=== PATIENT | male | born 2005 | race Caucasian/White ===

== ENCOUNTER 2023-07-19 20:56 | Emergency (ER) | payer BC, OTHER, SELFPAY ==
[2023-07-19 21:02] VITALS: BP 114/75; PULSE 77; RESP 18; TEMP 36.4; BMI 19.0
--- NOTE | 2023-07-19 21:33 | CRLHL7_ITS ---
For Patients: As a result of the Cures Act, medical imaging exams and procedure reports are released immediately into your electronic medical record. You may view this report before your referring provider. If you have questions, please contact your health care provider. Indication: FALL. Technique: Left clavicle, 2 views. Comparison: None. Findings: Bones: Fracture of the mid clavicle. There is overriding of the fracture fragments by approximately 2.6 centimeters.. Joint spaces: Mild widening of the AC joint.. Soft tissues: Unremarkable. Impression: Fracture of the mid clavicle with overriding fracture fragments. Dictated by Db Herzog MD @ 07/19/2023 10:33:00 PM (Electronically Signed)
--- NOTE | 2023-07-19 22:11 | ED.GENADULT ---
HPI - General Adult General Chief complaint: Fall/Minor Trauma Stated complaint: Snowboarding-broken collarbone? Time Seen by Provider: 07/19/23 20:58 Source: patient Mode of arrival: ambulatory Limitations: no limitations History of Present Illness HPI narrative: 17-year-old male presenting to the ER complaining of a left shoulder pain after tumbling forward while snowboarding. Patient was wearing helmet. He denies any head or neck pain. States that he has pain of the anterior shoulder. Denies any chest pain or shortness of breath. He was able to get up after the accident and walked to the bottom of the hill. Past medical history and medication reviewed. Related Data Previous Rx's Medication Instructions Recorded sumatriptan succinate 100 mg 100 mg PO Q2-4H PRN migraine 02/14/23 tablet (Imitrex) headache #10 tabs azithromycin 250 mg tablet See Rx Instructions PO .COMPLEX #6 03/22/23 (Zithromax Z-Benjy) tabs ondansetron 8 mg disintegrating 8 mg PO Q12H PRN nausea and 06/03/23 tablet vomiting #30 tabs Allergies Allergy/AdvReac Type Severity Reaction Status Date / Time Penicillins Allergy Unknown Unknown Verified 03/22/23 11:38 Review of Systems Status of ROS: Reports: 10 or more systems reviewed and unremarkable except as noted in History and below PFSH PFS Medical History Migraine ?G43.909 - Migraine, unspecified, not intractable, without status migrainosus (ICD-10) Oppositional disorder ?F91.3 - Oppositional defiant disorder (ICD-10) ADHD (attention deficit hyperactivity disorder) ?F90.9 - Attention-deficit hyperactivity disorder, unspecified type (ICD-10) SHEREEN (generalized anxiety disorder) ?F41.1 - Generalized anxiety disorder (ICD-10) Family History Maternal Grandfather Heart disease Other Diabetes Social History Narrative: 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, 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, 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, 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, social ETOH What is your current living situation?: I presently have a place to live Problems where you live: no known problems In the past 12 months, utilities in danger of being shut off: no In past 12 months, lack of transportation kept you from medical appts, meetings, work, or getting things needed for daily living: no In the past 12 mos, have been you worried that your food would run out before you had money to buy more?: never true In the past 12 mos, the food you bought just didn't last and you didn't have money to buy more?: never true How often does anyone, including family, friends and others, physically hurt you: never How often does anyone, including family, friends and others, insult or talk down to you: never How often does anyone, including family, friends and others, threaten you with harm: never How often does anyone, including family, friends and others, scream or curse at you: rarely Little interest or pleasure in doing things: several days Feeling down, depressed, or hopeless: several days Exam Narrative: Exam Narrative: Well-nourished well-developed patient in no acute distress. Alert and oriented. Answers questions appropriately. Mood and affect are appropriate. Thoughts are goal oriented and rational. No tangential or magical thinking noted. Patient speaks in full sentences without needing to catch his breath. Speech is not slurred or pressured. GCS is 15. HEENT: Normocephalic atraumatic. Pupils are equally round reactive to light. Extraocular muscles are intact. Conjunctivae are moist without any icterus noted. Moist mucous membranes. Posterior pharynx is normal. Neck is soft without any lymphadenopathy or thyromegaly. No masses are appreciated. He has no tenderness to palpation of the cervical spine. Full range of motion at the neck with flexion, extension, side bending and rotation pure Cardiovascular: Heart is regular rate and rhythm S1 and S2 are present without any murmurs. Lungs: Clear to auscultation bilaterally no wheezes rhonchi or rales are appreciated. Patient does have pain just medial to the anterior shoulder at the clavicle area when he takes deep inspirations. Abdomen: Soft and nontender nondistended with normal bowel sounds. Extremities: Bilateral lower extremities are without edema. Normal DP and PT pulses. Skin: Well perfused without any obvious rashes. Patient has pain over the left clavicle. There is no hematoma, tenting. The extremities vascularly intact. No neurologic deficits. Const: Vital Signs, click to edit/add: Vital Signs - 24 hr 07/19/23 21:02 Temperature 97.6 F Pulse Rate [Pulse Oximeter] 77 Respiratory Rate 18 Blood Pressure [Ri ght Upper Arm] 114/75 Oxygen Delivery Me thod Room Air Course Course ED Course: X-ray of the clavicle or does reveal a fracture of the mid clavicle with displaced ends. Vital Signs Vital signs: Initial Vital Signs Temperature 97.6 F 07/19/23 21:02 Temperature Source Temporal Artery Scan 07/19/23 21:02 Pulse Rate 77 07/19/23 21:02 Respiratory Rate 18 07/19/23 21:02 Blood Pressure 114/75 07/19/23 21:02 Blood Pressure Mean 88 07/19/23 21:02 Blood Pressure Position Supine 07/19/23 21:02 Oxygen Delivery Method Room Air 07/19/23 21:02 Vital Signs Temperature 97.6 F 07/19/23 21:02 Pulse Rate 77 07/19/23 21:02 Respiratory Rate 18 07/19/23 21:02 Blood Pressure 114/75 07/19/23 21:02 Oxygen Delivery Method Room Air 07/19/23 21:02 Temperature 97.6 F 07/19/23 21:02 Pulse Rate 77 07/19/23 21:02 Respiratory Rate 18 07/19/23 21:02 Blood Pressure 114/75 07/19/23 21:02 Oxygen Delivery Method Room Air 07/19/23 21:02 Medical Decision Making MDM Narrative Medical decision making narrative: 17-year-old male with clavicular fracture. Patient will be placed in a sling and will follow-up with orthopedics as this will potentially require surgical intervention. Discharge Plan Discharge Clinical Impression: Clavicle fracture Patient Disposition: Home, Self-Care Condition: Stable Additional Instructions: Wear sling at all times. Use pain medications as needed/as directed. You will need to follow-up with orthopedics: Call to make an appointment 1st thing in the morning. Ten tablets of [place] sent via [employer]. Prescriptions: No Action sumatriptan succinate [Imitrex] 100 mg tablet 100 mg PO Q2-4H PRN (Reason: migraine headache) Qty: 10 1RF azithromycin [Zithromax Z-Benjy] 250 mg tablet See Rx Instructions PO .COMPLEX Qty: 6 0RF Rx Instructions: For 250 mg dose pack: take 500 mg today (day 1), then 250 mg for 4 days (days 2-5) PO ondansetron 8 mg tablet,disintegrating 8 mg PO Q12H PRN (Reason: nausea and vomiting) Qty: 30 2RF Follow Up/Referrals: George Tracy MD [Primary Care Provider] - Stand Alone Forms: [employer] Info Instructions
== END 2023-07-19 22:36 | disposition home or self-care (01) ==
PROVIDERS: Emergency Provider Family Medicine; PCP Family Medicine
DX: S42.002A Fracture of unspecified part of left clavicle, initial encounter for closed fracture (principal); W18.39XA Other fall on same level, initial encounter; Y93.23 Activity, snow (alpine) (downhill) skiing, snowboarding, sledding, tobogganing and snow tubing
CPT/HCPCS: 73000; 99283

== ENCOUNTER 2023-07-20 12:16 | Outpatient (CLI) | payer BC, OTHER, SELFPAY | END 2023-07-20 12:17 | disposition home or self-care (01) | PROVIDERS: PCP Family Medicine; Visit Provider Family Medicine | DX: Z13.228 Encounter for screening for other metabolic disorders (principal); Z13.0 Encounter for screening for diseases of the blood and blood-forming organs and certain disorders involving the immune mechanism | CPT/HCPCS: 80048; 85025 ==

== ENCOUNTER 2023-07-28 09:08 | Day surgery (SDC) | payer BC, OTHER, SELFPAY ==
[2023-07-28] VITALS (15 sets, daily range): BP systolic 99–117; BP diastolic 61–76; PULSE 59–100; RESP 12–16; TEMP 36.3–37.2; O2SAT 94–100; BMI 20.1
--- OUTSIDE RECORDS SUMMARY | 2023-07-28 09:11 | XMS_ITS | Clinical Summary ---
Author Name Unknown Organization [facility] Address [address] [place] [address] Care Team Providers Care Enterprise Software Developer Name Role Phone David Bland M.D. Primary Care Provider [phone] Source Comments Patient records contain information from all sites at [facility]. For routine questions regarding patient records, call [phone] during business hours, M-F 8:00 AM - 5:00 PM Central Time. Record requests for emergency care only can be directed to [phone] at any time.[facility] Allergies Active Allergy Reactions Criticality Noted Date Comments Penicillins Other (see comments) 06/22/2017 Reaction unknown Medications Medication Sig Dispensed Refills Start Date End Date Status amphetamine-dextroam phetamine (ADDERALL XR) 10 mg 24 hr capsule Take 10 mg by mouth daily. 0 Active amphetamine-dextroam phetamine (ADDERALL XR) 10 mg 24 hr capsuleIndications:A ttention Deficit Disorder Combined Type Take 1 capsule (10 mg total) by mouth every morning Earliest Fill Date: 10/19/18. 30 capsule 0 10/19/2018 Active amphetamine-dextroam phetamine (ADDERALL XR) 10 mg 24 hr capsuleIndications:A ttention Deficit Disorder Combined Type Take 1 capsule (10 mg total) by mouth daily Earliest Fill Date: 11/18/18. 30 capsule 0 11/18/2018 Active amphetamine-dextroam phetamine (ADDERALL XR) 10 mg 24 hr capsuleIndications:A ttention Deficit Disorder Combined Type Take 1 capsule (10 mg total) by mouth daily Earliest Fill Date: 12/19/18. 30 capsule 0 12/19/2018 Active predniSONE (DELTASONE) 20 mg tablet Take 2 tablets (40 mg total) by mouth daily. 10 tablet 0 03/15/2022 Active Active Problems Problem Noted Date Diagnosed Date Anxiety Generalized Disorder 02/02/2018 Attention Deficit Disorder Combined Type 017 Overview: Attention Deficit (ADHD) Disorder Combined Type Immunizations Name Administration Dates Next Due 4vHPV (discontinued) 03/13/2017,09/09/2016 DTaP, Unspecified 08/10/2005, 5,05/11/2004,2003,01/05/2004 HepA Pediatric/Adolescent 07/21/2014 HepB, Unspecified 08/27/2004,03/04/2004,01/05/20 04 Hib, Unspecified 02/07/2005, 5,05/11/2004,2003,01/05/2004 IPV 03/30/2009, 4,03/04/2004,2003 Influenza, Unspecified 03/21/2017 MCV4 (Menactra)(Discontinued) 09/09/2016 MMR 02/19/2009,02/07/2005,11/17/2004 PCV7 (discontinued) 02/08/2006, 4,04/22/2004,2003 Tdap 09/09/2016 OSBALDO 07/21/2014 influenza vaccine quad (FLUZONE/FLUARIX) (6 months and older)(PF) 07/21/2014 Family History Medical History Relation Name Comments No Known Problems Father No Known Problems Mother Relation Name Status Comments Father Alive Mother Alive Social History Tobacco Use Types Packs/Day Years Used Date Smoking Tobacco: Never Smokeless Tobacco: Never Tobacco Cessation:Counseling Given: Not Answered PHQ-2 Answer Date Recorded PHQ-2 Score 1 12/06/2018 Nutrition Answer Date Recorded Nutrition: EVOO Fat Source Unknown 08/28 Nutrition: Servings of Fruits/Vegetables per Day Not on file 08/28/2020 Dental Answer Date Recorded Dental: Regular Dentist Unknown 08/29/19 21 Sex and Gender Information Value Date Recorded Sex Assigned at Not on file Gender Identity Not on file Sexual Orientation Not on file Last Filed Vital Signs Vital Sign Reading Time Taken Comments Blood Pressure 106/71 03/15/2022 12:57 PM CDT Pulse 110 03/15/2022 12:57 PM CDT Temperature 37.4 ??C (99.3 ??F) 07/29/2019 8:32 AM CS T Respiratory Rate 20 07/29/2019 8:32 AM ASSEMBLY LINE LEADER Oxygen Saturation 98% 03/15/2022 12:57 PM CDT Inhaled Oxygen Concentration - - Weight 58.2 kg (128 lb 3.2 oz) 03/15/2022 12:57 PM CDT Height 169.5 cm (5' 6.73) 07/29/2019 8:32 AM CS T Body Mass Index - - Plan of Treatment Health Maintenance Due Date Last Done Comments HIV Screening 2003 Hearing Screening during Well Child Visit 2003 Hepatitis C Screening 2003 1 week Well Child Check-Up 2003 1 month Well Child Check-Up 2003 2 month Well Child Check-Up 2003 4 month Well Child Check-Up 01/28/2004 6 month Well Child Check-Up 03/29/2004 COVID-19 Vaccine (#1) 04/29/2004 9 month Well Child Check-Up 06/29/2004 12 month Well Child Check-Up 09/27/2004 15 month Well Child Check-Up 12/27/2004 18 month Well Child Check-Up 03/29/2005 2 year Well Child Check-Up 09/27/2005 30 month Well Child Check-Up 03/29/2006 3 year Well Child Check-Up 09/27/2006 4 year Well Child Check-Up 09/28/2007 5 year Well Child Check-Up 09/27/2008 6 year Well Child Check-Up 09/27/2009 7 year Well Child Check-Up 09/27/2010 8 year Well Child Check-Up 09/28/2011 9 year Well Child Check-Up 09/27/2012 10 year Well Child Check-Up 09/27/2013 11 year Well Child Check-Up 09/27/2014 Varicella Vaccines (2 of 2 - 2-dose childhood series) 10/13/2014 07/21/2014 12 year Well Child Check-Up 09/28/2015 13 year Well Child Check-Up 09/27/2016 14 year Well Child Check-Up 09/27/2017 Vision Screening during Well Child Visit 10/27/2017 15 year Well Child Check-Up 09/27/2018 16 year Well Child Check-Up 09/28/2019 17 year Well Child Check-Up 09/27/2020 18 year Well Child Check-Up 09/27/2021 17 year Well Child Check-Up 09/27/2022 Well Child Check-Up ([facility]) 09/27/2022 Influenza Vaccine (#1) 2023 7, 03/21/2017, 07/21/2014, Additional history exists Depression Screening (Annual PHQ-2) 06/26/2023 DTaP,Tdap,and Td Vaccines (6 - Td or Tdap) 09/09/2026 09/09/2016, 08/10/2005, 08/10/2005, Additional history exists Hepatitis B Vaccines Completed 08/27/2004, 03/04/2004, 01/05/2004 Pneumococcal vaccine (0-64 years) Aged Out 02/08/2006, 05/11/2004, 04/22/2004, Additional history exists No longer eligible based on patient's age to complete this topic MMR Vaccines Completed 02/19/2009, 01/24, 11/17/2004 Meningococcal Vaccine Aged Out 09/09/2016 No josé miguel sam eligible based on patient's age to complete this topic HPV Vaccines Completed 03/13/2017, 02/24, 09/09/2016, Additional history exists Care Teams Enterprise Software Developer Relationship Specialty Start Date End Date David Bland M.D. [address] [place] [id number] [facility] - General 12/23/16
--- OUTSIDE RECORDS SUMMARY | 2023-07-28 09:11 | XMS_ITS | Referral Summary ---
Author Name Unknown Organization [facility] Address [address] [place] [address] Care Team Providers Care Gifts Officer Name Role Phone David Bland M.D. Primary Care Provider [phone] Source Comments Patient records contain information from all sites at [facility]. For routine questions regarding patient records, call [phone] during business hours, M-F 8:00 AM - 5:00 PM Central Time. Record requests for emergency care only can be directed to [phone] at any time.[facility] Allergies Active Allergy Reactions Criticality Noted Date [...] quad (FLUZONE/FLUARIX) (6 months and older)(PF) 07/21/2014 Social History Tobacco Use Types Packs/Day Years [...] T Respiratory Rate 20 07/29/2019 8:32 AM REPORTING PROCESS CONSULTANT Oxygen Saturation 98% 03/15/2022 12:57 PM CDT Inhaled Oxygen Concentration - - Weight 58.2 kg (128 lb 3.2 oz) 03/15/2022 12:57 PM CDT Height 169.5 cm (5' 6.73) 07/29/2019 8:32 AM CS T Body Mass Index - - Plan of Treatment Not on file Care Teams Gifts Officer Relationship Specialty Start Date End Date David Bland M.D. [address] [place] [id number] PCP - General 12/23/16
--- OUTSIDE RECORDS SUMMARY | 2023-07-28 09:11 | XMS_ITS ---
Author Name Unknown Organization [facility] Address [address] [place] [address] Care Team Providers Care Service Order Dispatcher Name Role Phone Unavailable Unavailable Unavailable Surgery Details Not on file Complications Check Surgery Details section. Procedure Estimated Blood Loss Check Surgery Details section. Procedure Findings Check Surgery Details section. Procedure Specimens Taken Check Surgery Details section.
[2023-07-28] MEDS: LACTATED RINGERS 1000 ML 1,000 ML 100 ML IV (09:46)
[2023-07-28] MEDS: SODIUM CHLORIDE 0.9 % (FLUSH) 10 ML SYRINGE IVF (09:46)
--- NOTE | 2023-07-28 09:49 | W.PM.H&PU ---
History & Physical Update History & Physical Update H&P Reviewed and patient assessed: No changes noted
--- NOTE | 2023-07-28 09:49 | PM.ORPRC ---
Procedure Note Date of procedure: 07/28/23 Procedure: PREOPERATIVE DIAGNOSIS: 1. Left clavicle shaft fracture POSTOPERATIVE DIAGNOSIS: 1. Left clavicle shaft fracture PROCEDURE: 1. Left clavicle open reduction internal fixation SURGEON: Cedrick Baez MD. [employer] LEADER: [CHANTELL Shah] - Of note, an aquatics assistant department head was critical for this case to aid in patient positioning, tissue retraction, limb manipulation/positioning, and closure. ANESTHESIA: [Spinal/General/] anesthetic IMPLANTS: [] ESTIMATED BLOOD LOSS: [] COMPLICATIONS: None INDICATIONS: The patient is a pleasant 17-year-old male who sustained displaced left clavicle fracture after an injury that he sustained while snowboarding. Due to the amount of displacement and shortening, recommendations made for surgical intervention consisting of left clavicle open reduction internal fixation. Prior to surgery risks and benefits of procedure were discussed with patient all questions were answered and informed consent was obtained.. FINDINGS: Closed, displaced, short oblique, midshaft clavicle fracture. DESCRIPTION OF PROCEDURE: Following a thorough discussion of risks, benefits, and alternatives consent was obtained and the operative site was marked. A regional block was then performed by anesthesia staff. The patient was brought to the operating room and placed supine on the operating table. General anesthesia was administered and patient was given 1 g IV Ancef preoperatively for prophylaxis. Patient was then rotated into the beach chair position. Head was placed in the padded head of loss prevention, and all bony prominences were well padded. The left shoulder was then prepped and draped in usual sterile fashion. A surgical time-out was performed identifying proper patient, site, procedure. [] Closure performed with []. Dressings were applied and the patient was awoken from anesthesia after the tourniquet deflated and transferred the PACU in stable condition. PLAN: 1. Nonweightbearing left upper extremity 2. Sling as needed for comfort 3. Ice and elevation for pain and swelling 4. [place] or Tylenol as needed for pain control 5. [DVT prophylaxis with at SCDs, Sabino Hose, and aspirin].
[2023-07-28] MEDS: MIDAZOLAM HCL 1 MG/ML inj IVP (10:12)
[2023-07-28] MEDS: fentaNYL 100 MCG/2 ML inj IVP (10:12)
--- NOTE | 2023-07-28 10:33 | P.NB_ITS ---
Nerve Block Nerve Block Time Seen by Provider: 10:20 Date Seen: 07/28/23 Type of block requested by surgeon for post-operative analgesia: interscalene Side: left Time out performed: Yes Verification of patient name: Yes Verification of date of : Yes Site marking: site marked Name of person performing procedure: Joesph Bebo Continuous monitoring Was continuous monitoring of O2 sat, B/P, environmental monitoring technician, recorded every 15 minutes?: Yes Procedure Checklist: sterile prep, needles and gloves Ultrasound guided. Images saved: Yes Medications given in 5ml increments after negative aspiration: Ropivicaine %: 0.5 mL: 25 Needle gauge: 21 Decadron (mg): 10 Precedex (mcg): 25 Patient tolerated procedure well: Yes Additional comments: Injected in 5mL increments after negative aspiration Block Charges Block Charge (with Pro Fee): Brachial Plexus Use of Ultrasound Machine for Block: Yes- US Guidance/pain block
--- NOTE | 2023-07-28 10:35 | SUR.PREOP ---
TIME?OUT:?1012 PT/RN/MDA?VERIFICATION?OF?SURGICAL?SITE,?PROCEDURE,?AND?CONSENT OBTAINED?PRIOR?TO?INVASIVE?PROCEDURE.
--- NOTE | 2023-07-28 11:00 | CRLHL7_ITS ---
For Patients: As a result of the Cures Act, medical imaging exams and procedure reports are released immediately into your electronic medical record. You may view this report before your referring provider. If you have questions, please contact your health care provider. Indication: Left ORIF Clavicle Technique: Three fluoroscopic images of the left clavicle. Fluoroscopic time 11.9 seconds. IMPRESSION: Fluoroscopic guidance for ORIF left clavicle fracture. Dictated by George Emery MD @ 07/28/2023 12:18:00 PM (Electronically Signed)
[2023-07-28] MEDS: BUPIVACAINE 0.5 %/EPI 1:200K 30 ML INJECTION (11:04)
--- NOTE | 2023-07-28 12:04 | PM.ORPRC ---
Procedure Note Date of procedure: 07/28/23 Procedure: Date of procedure: 07/28/23 Procedure: PREOPERATIVE DIAGNOSIS: 1. Left clavicle shaft fracture POSTOPERATIVE DIAGNOSIS: 1. Left clavicle shaft fracture PROCEDURE: 1. Left clavicle open reduction internal fixation 2. 78159 - Intraoperative fluoroscopy up to 1 hour SURGEON: Cedrick Baez MD. CORRECTIONAL COUNSELOR: Marlin Carroll P.A.-C. An esol teacher assistant was critical for this case to aid in patient positioning, tissue retraction, limb manipulation/positioning, and closure. ANESTHESIA: General with left interscalene/supraclavicular nerve block IMPLANTS: Arthrex 7 hole locking clavicle plate ESTIMATED BLOOD LOSS: 20 mL COMPLICATIONS: None INDICATIONS: The patient is a pleasant 17-year-old male who sustained displaced left clavicle fracture after an injury that he sustained while snowboarding. Due to the amount of displacement and shortening, recommendations made for surgical intervention consisting of left clavicle open reduction internal fixation. Prior to surgery risks and benefits of procedure were discussed with patient all questions were answered and informed consent was obtained.. FINDINGS: Closed, displaced, short oblique, midshaft clavicle fracture. DESCRIPTION OF PROCEDURE: Following a thorough discussion of risks, benefits, and alternatives consent was obtained and the operative site was marked. A regional block was then performed by anesthesia staff. The patient was brought to the operating room and placed supine on the operating table. General anesthesia was administered and patient was given 1 g IV Ancef preoperatively for prophylaxis. Patient was then rotated into the beach chair position. Head was placed in the padded early head start teacher, and all bony prominences were well padded. The left shoulder was then prepped and draped in usual sterile fashion. A surgical time-out was performed identifying proper patient, site, procedure. Subcutaneous tissues the proposed surgical incision site were injected with 0.25% Marcaine with epinephrine. A longitudinal incision was then laid along the anterior border of the clavicle centered over the fracture site. Blunt dissection was used until the clavipectoral fascia was identified. Clavipectoral fascia was split in line with the incision with care taken to preserve traversing supraclavicular nerves. Deep dissection was carried down to fracture site was identified. Fracture site was identified and cleared of fracture hematoma. Clavicle fracture was then reduced and held in place with clamps. A 7 hole Arthrex clavicle locking plate was then selected and contoured to fit on the superior aspect of the clavicle. This was provisionally fixed with BB tacks. Fluoroscopic imaging was used which confirmed anatomic reduction of the fracture with good placement of the plate. The plate was then fixed proximally with 2 3.5 mm locking screws. It was then fixed distally with a 3.5 mm nonlocking bicortical screw. Clamps were removed. Two additional 3.5 mm locking screws were placed laterally and one 3.5 mm nonlocking screw was placed medially. Final fluoroscopic images were obtained which confirmed anatomic reduction of the fracture with good placement of the plate and screws. Surgical incision site was then irrigated copious amounts of normal saline. The clavipectoral fascia was repaired over the plate using 0 Vicryl [id number] interrupted sutures. Wounds were again irrigated normal saline. Skin was then closed with 3-0 Vicryl and 3-0 Stratafix subcuticular stitches followed by Dermabond. Sterile dressing was applied. Patient then rotated back in supine position and was awoken from anesthesia. Arm was placed into a simple sling. He was then transferred to the PACU in stable condition. PLAN: 1. Nonweightbearing left upper extremity 2. Sling as needed for comfort 3. Ice and elevation for pain and swelling 4. [place] or Tylenol as needed for pain control 5. Removed sling for gentle passive range of motion exercises several times daily. 6. Follow-up in Orthopedic Clinic in 10-14 days for wound check. 7. Start formal physical therapy in 2 weeks.
--- NOTE | 2023-07-28 12:31 | W.ANESCHARGE ---
Anesthesia Charges Start Date/Time Anesthesia Start Date: 07/28/23 Anesthesia Start Time: 10:29 Stop Date/Time Anesthesia Stop Date: 07/28/23 Anesthesia Stop Time: 12:31
== END 2023-07-28 14:21 | disposition home or self-care (01) ==
PROVIDERS: PCP Family Medicine; Visit Provider Orthopaedic Surgery
PROC: (CPT 23515; principal; 2023-07-28 11:00)
DX: S42.022A Displaced fracture of shaft of left clavicle, initial encounter for closed fracture (principal); G89.18 Other acute postprocedural pain
CPT/HCPCS: 23515; 00450; 64415; 73000; 76000; 76942; C1713; J0330; J1100; J2250; J2371; J2405; J2704; J2795; J3010; J3490; J7120; L3670